=== PATIENT | male | born 1990 | race Hispanic/Latino ===

== ENCOUNTER 2018-01-14 10:36 | Emergency (ER) | payer SELFPAY ==
[2018-01-14 10:48] VITALS: BP 130/88
[2018-01-14] MEDS ORDERED: MORPHINE IV ONE (12:23)
[2018-01-14] MEDS ORDERED: TORADOL IV ONE (12:23)
[2018-01-14] MEDS ORDERED: ZOFRAN IV ONE (12:23)
[2018-01-14] MEDS ORDERED: NACL 0.9% 1000 ML 1,000 ML IV ONE (12:24)
--- NOTE | 2018-01-14 12:26 | Emergency Department Report ---
Blank Doc - Documentation Documentation: 27-year-old male with a past medical history of kidney stones 6 years ago that passed spontaneously presents to the hospital with complaints of similar symptoms and right-sided flank pain since yesterday. Pain is 7/10 intensity, sharp, and constant. Not improved with [id number] Motrin. Patient states that urine has a strong odor to it and mild dysuria at the end of urinary stream with increased frequency. Does complain of pain radiating to the testicles. Denies alix hematuria, vomiting, or fever. Positive nausea reported. Labs, UA ordered CT abdomen and pelvis noncontrast IV meds and fluids Midlevel to follow
[2018-01-14 13:01] LABS: Bacteria,Urine 1+ /HPF (Negative); Bilirubin,Urine NEG (Negative); Blood,Urine LG (Negative); Color,Urine Straw (Yellow); Urobilinogen,Urine < 2.0 mg/dL (<2.0); WBC,Urine < 1.0 /HPF (0.0-6.0)
--- NOTE | 2018-01-14 13:28 | Cat Scan Report ---
CT scan of abdomen and pelvis without IV contrast: History: Right flank pain. Kidney stones. Findings: Normal lung bases. No pleural or pericardial effusion. Normal liver spleen pancreas and gallbladder appear Normal adrenals. There is two calculi measuring 1 mm in diameter each noted at the right kidney. There is 3 mm calculus noted at the right UV junction causing right hydronephrosis. There is 1 mm nonobstructing calculus noted left kidney. There is a cysts identified in the left kidney measuring 1.6 cm and 1.1 cm diameter. No bowel distention or obstruction. Stool in colon. Impression: 3 mm calculus right UV junction causing right ureteral obstruction. Nonobstructing calculi right and left kidney. Cysts left kidney.
[2018-01-14 13:30] LABS: Alanine Aminotransferase 317 units/L (7-56); Albumin 4.1 g/dL (3.9-5); BUN/Creatinine Ratio 12; Blood Urea Nitrogen 7 mg/dL (9-20); Calcium 9.1 mg/dL (8.4-10.2); Hemolysis Index 5
[2018-01-14 13:49] LABS: Basophils # (Auto) 0.1 K/mm3 (0.0-0.1); Basophils % (Auto) 0.6 % (0.0-1.8); Eosinophils # (Auto) 0.1 K/mm3 (0.0-0.4); Eosinophils % (Auto) 1.1 % (0.0-4.3); Hematocrit 40.7 % (35.5-45.6); Lymphocytes # (Auto) 1.5 K/mm3 (1.2-5.4); Lymphocytes % (Auto) 18.3 % (13.4-35.0); Mean Corpuscular HGB Conc 34 % (32-34); Mean Corpuscular Hemoglobin 31 pg (28-32); Mean Corpuscular Volume 89 fl (84-94); Monocytes # (Auto) 0.6 K/mm3 (0.0-0.8); Monocytes % (Auto) 7.8 % (0.0-7.3); Platelet Count 176 K/mm3 (140-440); Red Blood Count 4.56 M/mm3 (3.65-5.03); Red Cell Distribution Width 12.8 % (13.2-15.2)
--- NOTE | 2018-01-14 14:28 | Emergency Department Report ---
ED Abdominal Pain HPI - General Chief Complaint: Abdominal Pain Stated Complaint: KIDNEY PAIN/KIDNEY STONE Time Seen by Provider: 01/14/18 12:19 Source: patient Mode of arrival: Ambulatory Limitations: No Limitations - History of Present Illness Initial Comments: This is a 27-year-old male nontoxic, well nourished in appearance, no acute signs of distress presents to the ED with c/o of right sided flank pain x1 day. Patient stated has history of kidney stone 6 years ago and passed it spontaneously and not presents with similar symptoms. Patient describes flank pain as cramping and aching with level of 3/10. Patient denies chest pain, abdominal pain, short of breath, fever, chills, headache, stiff neck, numbness or tingling. Patient denies any diarrhea or constipation. Patient denies any vaginal bleeding or discharge. Patient denies any recent travels. Patient demnies any allergies or PMH. Patient stated that he drinks about 5 times a week of alcohol. MD Complaint: flank pain -: days(s) (1) Location: R flank Radiation: none Migration to: no migration Severity: mild Severity scale (0 -10): 3 Quality: aching Consistency: now resolved (after medical treatment) Improves With: nothing Worsens With: nothing Associated Symptoms: denies other symptoms. denies: nausea, vomiting, diarrhea , fever, chills, constipation, dysuria, hematemesis, hematochezia, melena, hematuria, anorexia, syncope - Related Data Previous Rx's Medication Instructions Recorded Last Taken Type Acetaminophen/Codeine [Tylenol 1 tab PO Q6H PRN #12 tab 01/14/18 Unknown Rx /Codeine # 3 tab] Ibuprofen [Motrin] 600 mg PO Q8H PRN #30 tablet 01/14/18 Unknown Rx Tamsulosin [Flomax] 0.4 mg PO QDAY #5 cap 01/14/18 Unknown Rx Allergies Allergy/AdvReac Type Severity Reaction Status Date / Time No Known Allergies Allergy Unverified 01/14/18 10:45 ED Review of Systems ROS: Stated complaint: KIDNEY PAIN/KIDNEY STONE Other details as noted in HPI Constitutional: denies: chills, fever Eyes: denies: eye pain, eye discharge, vision change ENT: denies: ear pain, throat pain Respiratory: denies: cough, shortness of breath, wheezing Cardiovascular: denies: chest pain, palpitations Endocrine: no symptoms reported Gastrointestinal: denies: abdominal pain, nausea, diarrhea Genitourinary: denies: urgency, dysuria Musculoskeletal: denies: back pain, joint swelling, arthralgia Skin: denies: rash, lesions Neurological: denies: headache, weakness, paresthesias Psychiatric: denies: anxiety, depression Hematological/Lymphatic: denies: easy bleeding, easy bruising ED Past Medical Hx - Past Medical History Previous Medical History?: No - Surgical History Past Surgical History?: No - Social History Smoking Status: Never Smoker Substance Use Type: Alcohol - Medications Home Medications: Home Medications Medication Instructions Recorded Confirmed Last Taken Type Acetaminophen/Codeine [Tylenol 1 tab PO Q6H PRN #12 tab 01/14/18 Unknown Rx /Codeine # 3 tab] Ibuprofen [Motrin] 600 mg PO Q8H PRN #30 tablet 01/14/18 Unknown Rx Tamsulosin [Flomax] 0.4 mg PO QDAY #5 cap 01/14/18 Unknown Rx ED Physical Exam - General Limitations: No Limitations General appearance: alert, in no apparent distress - Head Head exam: Present: atraumatic, normocephalic - Eye Eye exam: Present: normal appearance - ENT ENT exam: Present: mucous membranes moist - Neck Neck exam: Present: normal inspection - Respiratory Respiratory exam: Present: normal lung sounds bilaterally. Absent: respiratory distress - Cardiovascular Cardiovascular Exam: Present: regular rate, normal rhythm. Absent: systolic murmur, diastolic murmur, rubs, gallop - GI/Abdominal GI/Abdominal exam: Present: soft, normal bowel sounds. Absent: distended, tenderness, guarding, rebound, rigid, diminished bowel sounds - Rectal Rectal exam: Present: deferred - Extremities Exam Extremities exam: Present: normal inspection, full ROM - Back Exam Back exam: Present: normal inspection, full ROM. Absent: tenderness, CVA tenderness (R), CVA tenderness (L), muscle spasm, paraspinal tenderness, vertebral tenderness, rash noted - Neurological Exam Neurological exam: Present: alert, oriented X3, normal gait - Psychiatric Psychiatric exam: Present: normal affect, normal mood - Skin Skin exam: Present: warm, dry, intact, normal color. Absent: rash ED Course Vital Signs 01/14/18 10:45 Temperature 98.9 F Pulse Rate 68 Respiratory 14 Rate Blood Pressure 130/88 O2 Sat by Pulse 100 Oximetry - Reevaluation(s) Reevaluation #1: 01/14/18 14:26 Patient is speaking in full sentences with no signs of distress noted. - Consultations Consultation #1: 01/14/18 14:26 Patient has been consulted with Dr. Wiggins about patient history, physical exam, and labs/CT of abdomen and examined and screened patient and agrees to ED plan of care and discharge plan of care. ED Medical Decision Making - Lab Data Result diagrams: 01/14/18 12:59 01/14/18 12:59 - Medical Decision Making This is a 27-year-old male that presents with kidney stone. Patient is stable and was examined by me and Dr. Wiggins. There is no abdominal or CVA tenderness. Labs obtained. UA obtained.CT of abdomen obtained and dictated by the radiologist. Patient is notified of the report with no questions noted by the patient. Vital signs are stable prior to discharge. Patient stated he feels much better and symptoms of pain resolved. A by mouth challenge has been obtained and patient tolerated well with no nausea vomiting. Patient was also instructed to Follow-up with a primary care doctor in 3-5 days or if symptoms worsen and continue return to emergency room as soon as possible. At time of discharge, the patient does not seem toxic or ill in appearance. No acute signs of distress noted. Patient agrees to discharge treatment plan of care. No further questions noted by the patient. Critical care attestation.: If time is entered above; I have spent that time in minutes in the direct care of this critically ill patient, excluding procedure time. ED Disposition Clinical Impression: Kidney stone Disposition: DC-01 TO HOME OR SELFCARE Is pt being admited?: No Does the pt Need Aspirin: No Condition: Stable Instructions: Kidney Stones (ED), Acetaminophen/Codeine (By mouth), Tamsulosin (By mouth) Additional Instructions: Follow-up with a primary care doctor in 3-5 days or if symptoms worsen and continue return to emergency room as soon as possible. Do not operate any machinery while taking Tylenol with codeine as this may cause drowsiness. Prescriptions: Acetaminophen/Codeine [Tylenol /Codeine # 3 tab] 1 tab PO Q6H PRN #12 tab PRN Reason: Pain , Severe (7-10) Ibuprofen [Motrin] 600 mg PO Q8H PRN #30 tablet PRN Reason: Pain Tamsulosin [Flomax] 0.4 mg PO QDAY #5 cap Referrals: PRIMARY CAREMD [Primary Care Provider] - 3-5 Days JOHN MCBRIDE MD [Staff Physician] - 3-5 Days [facility] [Outside] - 3-5 Days [facility] [Outside] - 3-5 Days Forms: Work/School Release Form(ED)
== END 2018-01-14 14:41 | disposition home or self-care (01) ==
LOC: ED 10:36
DX: N20.0 Calculus of kidney (principal)
CPT/HCPCS: 36415; 74176; 80053; 81001; 85025; 96374; 96375; 99284; J1885; J2270; J2405; J7030; 96361